=== PATIENT | male | born 1955 | race Caucasian/White ===

== ENCOUNTER → 2018-10-02 | Outpatient (CLI) | payer BC ==
[2018-10-02 10:25] LABS: Basophils # (A) 0.1 k/uL (0-0.2); Basophils % (A) 1 %; Eosinophils # (A) 0.2 k/uL (0-0.7); Eosinophils % (A) 4 %; HCT 39.6 % (39.0-53.0); HGB 12.7 gm/dL (13.0-17.5); Lymphocytes # (A) 1.3 k/uL (1.0-4.8); Lymphocytes % (A) 21 %; MCH 32.2 pg (25.0-35.0); MCV 100.6 fL (80.0-100.0); Macrocytosis Slight; Mean Platelet Volume 7.9; Monocytes # (A) 0.4 k/uL (0-1.0); Monocytes % (A) 7 %; Neutrophils # (A) 3.7 k/uL (1.3-7.7); Neutrophils % (A) 64 %; Platelet Count 179 k/uL (150-450); RBC 3.94 m/uL (4.30-5.90); RDW 15.4 % (11.5-15.5); WBC 5.9 k/uL (3.8-10.6)
[2018-10-02 17:41] LABS: Albumin 4.2 g/dL (3.80-4.90); Albumin/Globulin Ratio 1.75 (1.60-3.17); Anion Gap 8.2 mmol/L (4.00-12.00); Bilirubin, Conjugated 0.2 mg/dL (0.20-0.40); Bilirubin,Unconjugated 0.7 mg/dL; Calcium 9.3 mg/dL (8.7-10.3); Carbon Dioxide 26.8 mmol/L (21.6-31.8); Globulin 2.4 g/dL (1.6-3.3); Magnesium 1.6 mg/dL (1.5-2.4); Potassium 4.7 mmol/L (3.5-5.5); Total Bilirubin 0.9 mg/dL (0.3-1.2); Total Protein 6.6 g/dL (6.2-8.2)
[2018-10-03 15:02] LABS: Tacrolimus (FK506) 7.7 ng/mL (5.0-20.0)
[2018-10-04 15:56] LABS: CMV DNA Qualitative Not detected (Not detected); CMV DNA, Quantitative <50 IU/mL (<50); LOG CMV Copies/mL <126 Copies/mL (<126); Log Cytomegalovirus <1.70 (<1.70)
== END | disposition home or self-care (01) ==
LOC: LABWHC1 09:23
PROVIDERS: ATTEND Internal Medicine Critical Care Medicine
DX: T86.819 Unspecified complication of lung transplant (principal); E11.9 Type 2 diabetes mellitus without complications; I49.9 Cardiac arrhythmia, unspecified; J84.112 Idiopathic pulmonary fibrosis; Z48.24 Encounter for aftercare following lung transplant
CPT/HCPCS: 36415; 80053; 80197; 82248; 83735; 85025; 87497

== ENCOUNTER 2020-09-23 09:13 | Day surgery (SDC) | payer BC ==
[2020-09-21 10:37] VITALS: BMI 28.5
[~2020-09-23 09:13] MED LIST: DEXAMETHASONE SOD PHOSPHATE 4 MG/ML 1 ML VIAL IV PRN; FAMOTIDINE 20 MG/2 ML VIAL IV PRN; ONDANSETRON 4 MG/2 ML VIAL IVP PRN
[2020-09-23] MEDS ORDERED: LACTATED RINGERS 1,000 ML IV ONE (10:05)
[2020-09-23] MEDS ORDERED: LIDOCAINE 1% (10MG/ML) FOR IV START INTRADERMA ONE (10:05)
[2020-09-23] MEDS ORDERED: ONDANSETRON 4 MG/2 ML VIAL IVP ONE ×3 (10:06→14:21)
[2020-09-23 10:11] LABS: Glucose,Whole Blood 98 mg/dL (75-99)
[2020-09-23] MEDS ORDERED: MIDAZOLAM 2 MG/2 ML VIAL ONE (10:26)
[2020-09-23] MEDS ORDERED: LIDOCAINE 1% INJ 10MG/ML (20 ML MDV) ONE (10:26)
[2020-09-23] MEDS ORDERED: fentaNYL (PF) 50 MCG/ML 2 ML AMP ONE (10:26)
[2020-09-23] MEDS ORDERED: PROPOFOL 10 MG/ML 20 ML VIAL IV ONE (10:26)
[2020-09-23] MEDS ORDERED: ePHEDrine SULFATE/0.9% NACL/PF 50 MG/5 ML SYRINGE IV ONE (10:26)
[2020-09-23] MEDS ORDERED: LIDOCAINE 1%-EPI 1:100,000 20 ML VIAL SQ ONE (10:31)
[2020-09-23] MEDS ORDERED: BUPIVACAINE (PF) 0.5% 30 ML VIAL SQ ONE (10:31)
[2020-09-23] MEDS ORDERED: BACITRACIN ZINC 500 UNIT/GM OINT 28.4 GM TUBE TOPICAL ONE (10:31)
[2020-09-23 14:07] VITALS: RESP 16; TEMP 97
[2020-09-23] MEDS ORDERED: HYDROmorphone 0.5 MG/0.5 ML SYRINGE IVP ONE ×2 (14:11)
[2020-09-23] MEDS ORDERED: PROMETHAZINE INJ 25 MG/ML 1 ML VIAL IVPB ONE (14:58)
[2020-09-23 15:03] LABS: Glucose,Whole Blood 70 mg/dL (75-99)
[2020-09-23] MEDS ORDERED: oxyCODONE-APAP 5-325MG 1 EACH TAB ONE (15:17)
[2020-09-23 15:42] LABS: Glucose,Whole Blood 76 mg/dL (75-99)
[2020-09-23] MEDS ORDERED: DEXTROSE 50% SYRINGE 50 ML IVP ONE (15:52)
[2020-09-23 15:55] VITALS: BP 171/86; PULSE 71
[2020-09-23 16:19] LABS: Glucose,Whole Blood 169 mg/dL (75-99)
--- NOTE | 2020-09-23 23:10 | OP ---
OPERATIVE REPORT DATE OF SERVICE: 09/23/2020. SURGEON: Carlos Rivers D.O. PREOPERATIVE DIAGNOSIS: Multiple malignancies and skin lesions: 1. Right preauricular lesion measures 4.6 x 2 cm. 2. Right anterior scalp lesion measures 4.1 x 2 cm. 3. Left upper forehead lesion measures 6.1 x 1.5 cm. 4. Left lateral forehead lesion measures 4.2 x 2 cm. 5. Left preauricular lesion measures 4.8 x 2 cm. 6. Left upper forearm lesion measures 1.6 x 1 cm. 7. Left upper mid forearm lesion measures 4.5 x 2 cm. 8. Left lower mid forearm lesion measures 2.6 x 2 cm. 9. Left lower forearm lesion measures 6.1 x 3 cm. POSTOPERATIVE DIAGNOSIS: Multiple malignancies and skin lesions: 1. Right preauricular lesion measures 4.6 x 2 cm. 2. Right anterior scalp lesion measures 4.1 x 2 cm. 3. Left upper forehead lesion measures 6.1 x 1.5 cm. 4. Left lateral forehead lesion measures 4.2 x 2 cm. 5. Left preauricular lesion measures 4.8 x 2 cm. 6. Left upper forearm lesion measures 1.6 x 1 cm. 7. Left upper mid forearm lesion measures 4.5 x 2 cm. 8. Left lower mid forearm lesion measures 2.6 x 2 cm. 9. Left lower forearm lesion measures 6.1 x 3 cm. OPERATIVE PROCEDURE: 1. Excision of a right preauricular skin lesion measuring 4.6 x 2 cm with reconstruction utilizing a bilateral advancement flap closure with a secondary defect measuring 9.2 x 4 cm. 2. Excision of a right anterior scalp lesion measuring 4.1 x 2 cm with reconstruction utilizing a bilateral advancement flap for closure with a secondary defect of 8.2 x 4 cm. 3. Excision of a left upper forehead lesion measuring 6.1 x 1.5 cm with reconstruction utilizing a bilateral advancement flap with a secondary defect measuring 12.2 x 3 cm. 4. Excision of a left lateral forehead lesion measuring 4.2 x 2 cm with reconstruction with a bilateral advancement flap and a secondary defect measuring 8.4 x 2 cm. 5. Excision of a left preauricular lesion measuring 4.8 x 2 cm with reconstruction utilizing a bilateral advancement flap closure with a secondary defect measuring 9.6 x 4 cm. 6. Excision of a left upper forearm lesion measuring 1.6 x 1 cm with complex closure. 7. Excision of a left upper mid forearm lesion measuring 4.5 x 2 cm with complex closure. 8. Excision of a left lower mid forearm lesion measuring 2.6 x 2 cm with complex closure. 9. Excision of a left lower forearm lesion measuring 6.1 x 3 cm with complex closure. OPERATIVE BLOOD LOSS: Minimal. SPECIMENS REMOVED: As above. COMPLICATIONS: None. ANESTHESIA: General. CONSENT: All risks, benefits and alternative therapies were discussed. Consent was obtained. All questions were answered. OPERATIVE INDICATIONS: This patient was found to have multiple lesions. He had a cancer of the left upper forehead. We did a wide excision, but the margins were still positive for tumor. He had multiple other skin cancers and lesions that he wished to have removed. OPERATIVE FINDINGS: All frozen sections came back with clean margins. OPERATIVE PROCEDURE: This patient was taken to the operating room and placed in supine position. LMA was inserted and the patient was monitored throughout the entire case by the department of anesthesia with a functioning IV line in place. The patient had good vitals during this time. The face and left arm were sterilely prepped and draped in the usual fashion. The multiple areas were marked and anesthetized with lidocaine 1% with epinephrine 1:100,000. Approximately 10 minutes were allowed to wait for full vasoconstrictive effects to take place. At this time attention was then first paid to the head and face region. He had a large exophytic fungating lesion in the right preauricular area that measured 4.6 x 2 cm. We excised that with a 15-blade. Delicate plastic excision was then broadened with Adson forceps and developed bilateral advancement flap closures anteriorly and posteriorly. We removed Burow's triangles and did extensive undermining and we rotated the skin to close the defect. We closed the deep dermal layer with 4-0 Monocryl. We closed the mid dermal layer with 4-0 Monocryl and 3-0 PDS and the final skin layer was with the use of a 5-0 Prolene in a running non- locking fashion. Steri-Strips were applied. Attention was paid to the right anterior scalp lesion measuring 4.1 x 2 cm. This was also excised with a 15-blade. Extensive undermining and bilateral advancement flaps were developed superiorly and inferiorly. We removed Burow's triangles and prepped the skin edges. We had a secondary defect measuring 8.2 x 4 cm. We closed that with 3-0 PDS, 4-0 Monocryl and a 5-0 Prolene. Attention was then paid to the left upper forehead lesion which was previously excised but had positive margins. Our excision was 6.1 x 1.5 cm. We removed that with a 15- blade. Delicate plastic excision was then broadened with Adson forceps. We developed superior and inferiorly based pedicle flaps, removed Burow's triangles, removed redundant skin, did extensive undermining, rotated the flaps and closed the defect with a secondary defect measuring 12.2 x 3 cm. We then paid attention to the left lateral forehead lesion, which measured 4.2 x 2 cm. We excised that with a 15-blade. Delicate plastic excision was broadened with Adson forceps and we did extensive undermining in all directions and closed this with bilateral advancement flaps superiorly and inferiorly based with removal of Burow's triangles with a secondary defect measuring 8.4 x 2 cm. We then paid attention to the left preauricular lesion which had an exophytic fungating mass measuring 4.8 x 2 cm. We excised that with a 15-blade and raised medial and lateral flaps for advancement. We removed Burow's triangles. We did extensive undermining in all directions. We trimmed the skin edge. We had a secondary defect measuring 9.6 x 4 cm but closed that with 3-0 PDS, 4-0 Monocryl and the 5-0 Prolene. The patient then had 4 lesions on the left forearm. The upper forearm lesion measured 1.6 x 1 cm. The left upper mid forearm lesion measured 4.5 x 2 cm. The left lower mid forearm lesion measured 2.6 x 2 cm and the left lower forearm lesion measured 6.1 x 3 cm. We excised all these 4 lesions with the delicate plastics scissors, broadened with Adson forceps. We then closed the deep dermal layers with 3-0 PDS, 4-0 Monocryl. We did of course extensive undermining. We removed redundant tissue, prepped the skin edges and closed them in a complex fashion. Final skin closure was with rapid Vicryl utilizing a 5-0 Rapide Vicryl. Excellent approximation was obtained. We applied Steri-Strips to all these incisions. The patient tolerated this well, and followup will be in the office in one week for recheck. The patient is to contact me if any problems should arise in the interim. ANY / TRUNGN: [id number] /
== END 2020-09-23 16:30 | disposition home or self-care (01) ==
LOC: OR 09:13
PROVIDERS: ATTEND Otolaryngology
DX: D04.39 Carcinoma in situ of skin of other parts of face (principal); L57.0 Actinic keratosis; B36.8 Other specified superficial mycoses; D04.4 Carcinoma in situ of skin of scalp and neck; D04.21 Carcinoma in situ of skin of right ear and external auricular canal; L57.8 Other skin changes due to chronic exposure to nonionizing radiation; D04.62 Carcinoma in situ of skin of left upper limb, including shoulder; D04.22 Carcinoma in situ of skin of left ear and external auricular canal; E11.9 Type 2 diabetes mellitus without complications; Z85.820 Personal history of malignant melanoma of skin; Z98.890 Other specified postprocedural states; Z94.2 Lung transplant status; Z79.899 Other long term (current) drug therapy; Z79.4 Long term (current) use of insulin; Z79.52 Long term (current) use of systemic steroids; Z85.828 Personal history of other malignant neoplasm of skin; X32.XXXA Exposure to sunlight, initial encounter
CPT/HCPCS: 14301; 14041; 11602; 11606; 13121; 13122 ×6; 88305; 88342; 88331; 88332; 88341; J2250; J2550; J2405; J0690; J2001; J3010; J2704; J1170